=== PATIENT | female | born 1955 | race Caucasian/White ===

== ENCOUNTER → 2019-05-27 | Outpatient (CLI) | payer OTHER, SELFPAY ==
[2019-05-27 13:57] LABS: Thyroid Stim Hormone (TSH) 0.05 uIU/mL (0.358-3.74)
[2019-05-28 09:42] LABS: T4 Free Direct 1.55 ng/dL (0.76-1.46)
== END | disposition home or self-care (01) ==
DX: E89.0 Postprocedural hypothyroidism (principal)
CPT/HCPCS: 36415; 84439; 84443